=== PATIENT | female | born 1940 | race Caucasian/White ===

== ENCOUNTER → 2018-12-07 | Outpatient (CLI) | payer MEDICARE ==
--- NOTE | 2018-12-07 18:53 | CT ---
EXAMINATION TYPE: CT brain wo con DATE OF EXAM: 12/07/2018 COMPARISON: None HISTORY: Fell and hit head. Headache CT DLP: 1123 mGycm Automated exposure control for dose reduction was used. FINDINGS: Ventricles have normal size. There is no mass effect nor midline shift. There is no sign of intracran ial hemorrhage. The calvarium is intact. There is cerebral cortical atrophy. Skull base appears intac t. IMPRESSION: MILD ATROPHY. NO ACUTE INTRACRANIAL ABNORMALITY.
--- NOTE | 2018-12-07 18:57 | XR ---
EXAMINATION TYPE: XR shoulder complete RT DATE OF EXAM: 12/07/2018 COMPARISON: NONE HISTORY: Fall. Shoulder pain. TECHNIQUE: 3 views FINDINGS: There is a right shoulder prosthesis. The scapula appears intact. There is a tiny irregular shaped 1.5 cm density inferior to the humeral head probably relates to old trauma. Comparison with a n old exam and be helpful. IMPRESSION: Right shoulder prosthesis without sign of loosening. No dislocation. Calcifications seen that could relate to an old injury. A chip fracture of the humeral head cannot be entirely excluded.
== END ==
LOC: RADCTMAIN 18:22
PROVIDERS: ATTEND Nurse Practitioner Family
DX: S09.90XA Unspecified injury of head, initial encounter (principal); G31.9 Degenerative disease of nervous system, unspecified; M25.511 Pain in right shoulder; Z96.611 Presence of right artificial shoulder joint
CPT/HCPCS: 70450

== ENCOUNTER 2021-09-11 08:19 | Emergency (ER) | payer MEDICARE ==
[2021-09-11 08:27] VITALS: RESP 18; TEMP 98.5
[2021-09-11] MEDS ORDERED: AMOXIC-POT CLAV 875MG STARTER PACK 2 TAB BTL PO STA (08:33)
[2021-09-11] MEDS ORDERED: DIPH,PERTUS(ACELL)TETVAC-LF 0.5 ML VIAL IM ONE (08:33)
[2021-09-11] MEDS ORDERED: LIDOCAINE 1% INJ 10MG/ML (20 ML MDV) SQ ONE (08:34)
--- NOTE | 2021-09-11 08:36 | ED ---
General Adult HPI - General Chief complaint: Animal Bite Stated complaint: Dog Bite Time Seen by Provider: 09/11/21 08:28 Source: patient Mode of arrival: wheelchair - History of Present Illness Initial comments: 81-year-old female with a past medical history of fibromyalgia, diverticulitis presents to the emergency room for a chief complaint of dog bite. Patient was bit by her daughter's dog on the right hand and forearm after she tried to get him up off the couch. Patient states that the dog is up-to-date on rabies vaccines. Patient is not up-to-date on tetanus. Patient denies any difficulty moving the hand.Patient has no other complaints at this time including shortness of breath, chest pain, abdominal pain, nausea or vomiting, headache, or visual changes. - Related Data Previous Rx's Medication Instructions Recorded Mupirocin 2% Oint [Bactroban 2% 1 applic TOPICAL TID #20 gm 04/15/15 Oint] Amoxicillin/Potassium Clav 1 tab PO Q12HR #20 tab 09/11/21 [Augmentin 875-125 Tablet] Allergies Allergy/AdvReac Type Severity Reaction Status Date / Time Sulfa (Sulfonamide Allergy Rash/Hives Verified 09/11/21 08:27 Antibiotics) Review of Systems ROS Statement: Those systems with pertinent positive or pertinent negative responses have been documented in the HPI. ROS Other: All systems not noted in ROS Statement are negative. Past Medical History Past Medical History: Fibromyalgia Additional Past Medical History / Comment(s): diverticulitis, arthriitis History of Any Multi-Drug Resistant Organisms: MRSA MDRO Source:: unsure Past Surgical History: Bowel Resection Additional Past Surgical History / Comment(s): ileostomy Past Psychological History: Anxiety Smoking Status: Never smoker Past Alcohol Use History: Occasional Past Drug Use History: None Reported General Exam General appearance: alert, in no apparent distress Head exam: Present: atraumatic Eye exam: Present: normal appearance, PERRL, EOMI. Absent: scleral icterus, conjunctival injection ENT exam: Present: normal exam, mucous membranes moist Neck exam: Present: normal inspection, full ROM. Absent: tenderness Respiratory exam: Present: normal lung sounds bilaterally. Absent: respiratory distress, wheezes Cardiovascular Exam: Present: regular rate, normal rhythm, normal heart sounds GI/Abdominal exam: Present: soft, normal bowel sounds. Absent: distended, tenderness Extremities exam: Present: full ROM (Full range of motion of the right hand and all digits in the right hand.), normal capillary refill (Capillary refill less than 2 seconds right hand. Patient does have a skin tear noted over the dorsal hand measuring about 2 cm. She also has a 2 cm laceration on the right anterior forearm) Course Vital Signs 09/11/21 08:22 Temperature 98.5 F Pulse Rate 79 Respiratory 18 Rate Blood Pressure 156/72 O2 Sat by Pulse 95 Oximetry Procedures - Laceration Laceration #1 Consent Obtained: verbal consent Indication: laceration Site: upper extremity Size (cm): 3 Description: linear Depth: simple, single layer Anesthetic Used: lidocaine 1% Anesthesia Technique: local infiltration Amount (mls): 3 Pre-repair: wound explored, irrigated extensively, deep structures intact Type of Sutures: nylon Size of Sutures: 5-0 Number of Sutures: 3 Technique: simple, interrupted Patient Tolerated Procedure: well, no complications Medical Decision Making - Medical Decision Making Vitals are stable. X-ray of the hand and forearm arm are negative, no foreign body. Wounds were irrigated thoroughly with saline pressure irrigation. There is a 3 cm wound on the anterior forearm that was sutured with 3 simple interrupted sutures. She also had a skin tear noted to the palmar aspect of the fifth metacarpal head, dorsum of the right hand that was repaired with Steri-Strips. Patient started on Augmentin and updated on tetanus. Dog is up to date on rabies immunizations. Discussed return parameters including for infection. Daughter is aware of what to watch for as well. They will follow up with primary care. They will return here in 7-10 days for suture removal. Disposition Clinical Impression: Dog bite Disposition: HOME SELF-CARE Condition: Good Instructions (If sedation given, give patient instructions): Animal Bite (ED) Additional Instructions: Take antibiotic as directed. Keep wounds clean twice a day with gentle soap and water. Apply antibiotic ointment. Follow up with primary care. If he notices any signs of infection such as spreading or streaking redness, drainage, or fever return immediately. Otherwise return in 7-10 days for suture removal. Prescriptions: Amoxicillin/Potassium Clav [Augmentin 875-125 Tablet] 1 tab PO Q12HR #20 tab Is patient prescribed a controlled substance at d/c from ED?: No Referrals: Jase Foreman MD [STAFF PHYSICIAN] - 1-2 days Time of Disposition: 09:42
--- NOTE | 2021-09-11 09:18 | XR ---
EXAMINATION TYPE: XR forearm RT DATE OF EXAM: 09/11/2021 CLINICAL HISTORY: pain TECHNIQUE: Frontal and lateral images of the right forearm are obtained. COMPARISON: None. FINDINGS: There is no acute fracture/dislocation evident. The joint spaces appear within normal limi ts. The overlying soft tissue appears unremarkable. IMPRESSION: There is no acute fracture or dislocation. ICD 10 NO FRACTURE, INITIAL EVALUATION
--- NOTE | 2021-09-11 09:27 | XR ---
EXAMINATION TYPE: XR hand complete RT DATE OF EXAM: 09/11/2021 CLINICAL HISTORY: pain TECHNIQUE: Frontal, lateral and oblique images of the right hand are obtained. COMPARISON: None. FINDINGS: There is no acute fracture/dislocation evident. The joint spaces appear mildly narrowed. T he overlying soft tissue appears unremarkable. IMPRESSION: There is no acute fracture or dislocation ICD 10 NO FRACTURE, INITIAL EVALUATION
[2021-09-11 09:55] VITALS: BP 148/72; PULSE 78
== END 2021-09-11 09:55 | disposition home or self-care (01) ==
LOC: EC 08:19
DX: S61.451A Open bite of right hand, initial encounter (principal); F41.9 Anxiety disorder, unspecified; Z88.2 Allergy status to sulfonamides; W54.0XXA Bitten by dog, initial encounter
CPT/HCPCS: 99283; 90471; 12002; 73090; 73130; 90715; J2001

== ENCOUNTER 2024-01-12 14:45 | Emergency (ER) | payer MEDICARE ==
[2024-01-12 15:12] VITALS: RESP 16
--- NOTE | 2024-01-12 16:09 | ED ---
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 Patient states that she is out of her Lyrica and having breakthrough pain. She states she feels a bit shaky because she has not taken the Lyrica since yesterday. Patient saw her primary today regarding the medication or the pharmacy could not prescription. She denies any new pain, falls or injuries, chest pain or shortness breath. - Related Data Previous Rx's Medication Instructions Recorded Mupirocin 2% Oint [Bactroban 2% 1 applic TOPICAL TID #20 gm 04/15/15 Oint] Amoxicillin/Potassium Clav 1 tab PO Q12HR #20 tab 09/11/21 [Augmentin 875-125 Tablet] Pregabalin [Lyrica] 150 mg PO TID 7 Days #21 cap 01/12/24 Allergies Allergy/AdvReac Type Severity Reaction Status Date / Time Sulfa (Sulfonamide Allergy Rash/Hives Verified 01/12/24 14:52 Antibiotics) Review of Systems ROS Statement: Those systems with pertinent positive or pertinent negative responses have been documented in the HPI. ROS Other: All systems not noted in ROS Statement are negative. Past Medical History Past Medical History: Fibromyalgia Additional Past Medical History / Comment(s): diverticulitis, arthriitis History of Any Multi-Drug Resistant Organisms: MRSA MDRO Source:: unsure Past Surgical History: Bowel Resection Additional Past Surgical History / Comment(s): ileostomy Past Psychological History: Anxiety Smoking Status: Never smoker Past Alcohol Use History: Occasional Past Drug Use History: None Reported General Exam Limitations: no limitations General appearance: alert, in no apparent distress Head exam: Present: atraumatic Eye exam: Present: normal appearance ENT exam: Present: normal exam Neck exam: Present: full ROM Respiratory exam: Present: normal lung sounds bilaterally Cardiovascular Exam: Present: regular rate GI/Abdominal exam: Present: soft Extremities exam: Present: full ROM Back exam: Present: full ROM Neurological exam: Present: alert, oriented X3, CN II-XII intact, normal gait Psychiatric exam: Present: normal affect, normal mood Skin exam: Present: warm, dry Course Vital Signs 01/12/24 01/12/24 14:49 16:53 Temperature 98.2 F 97.6 F Pulse Rate 85 78 Respiratory 16 Rate Blood Pressure 167/77 179/82 O2 Sat by Pulse 99 99 Oximetry - Reevaluation(s) Reevaluation #1: 01/12/24 1615 Patient is well appearing emergency room and in no distress. She is neurologically intact. Able to walk with a steady gait. Daughter at bedside states she is not concerned with the misuse of the medications. The patient as well as the pharmacy who I spoke with states she has not misuse to the medications in the past and has not required early refills in the past. The daughter states she is at her normal baseline and not concerned regarding the misuse. Patient was given dose of Lyrica in the emergency room today. I spoke with the pharmacist who said if she had any prescription they could fill a different dosage that would likely be covered by insurance and the pharmacy would be comfortable filling. Patient will be given a lower dose of 150mg 3 times daily of the Lyrica that she may take until her old prescription is refilled. The patient understood and agreed to this plan. I discussed these issues and prescriptions with attending ED physician Dr. Esparza today Medical Decision Making - Medical Decision Making Was pt. sent in by a medical professional or institution ([facility], PRACTICING MD ANESTHESIOLOGIST, urgent care, hospital, or snf...) When possible be specific @ -[No] Did you speak to anyone other than the patient for history (EMS, parent, family, police, friend...)? What history was obtained from this source @ -Daughter at bedside Did you review nursing and triage notes (agree or disagree)? Why? @ -[I reviewed and agree with nursing and triage notes] Were old charts reviewed (outside hosp., previous admission, EMS record, old EKG, old radiological studies, urgent care reports/EKG's, snf records)? Report findings @ -Yes old charts were reviewed Differential Diagnosis (chest pain, altered mental status, abdominal pain women, abdominal pain men, vaginal bleeding, weakness, fever, dyspnea, syncope, he adache, dizziness, GI bleed, back pain, seizure, CVA, palpatations, mental health, musculoskeletal)? @ -Chronic pain, medication refill EKG interpreted by me (3pts min.). @ -[As above] X-rays interpreted by me (1pt min.). @ -[None done] CT interpreted by me (1pt min.). @ -[None done] U/S interpreted by me (1pt. min.). @ -[None done] What testing was considered but not performed or refused? (CT, X-rays, U/S, labs)? Why? @ -[None] What meds were considered but not given or refused? Why? @ -[None] Did you discuss the management of the patient with other professionals (professionals i.e. , PA, PRACTICING MD ANESTHESIOLOGIST, lab, RT, psych nurse, group social worker, pet care attendant, teacher, first aid officer, rn case manager)? Give summary @ -[I spoke with the pharmacist at [facility] pharmacy regarding patient's refills, medication dosage and refill history. He does not misuse her medications and has not had early refills in the past Was smoking cessation discussed for >3mins.? @ -[No] Was critical care preformed (if so, how long)? @ -[No] Were there social determinants of health that impacted care today? How? (Homelessness, low income, unemployed, alcoholism, drug addiction, transportation, low edu. Level, literacy, decrease access to med. care, custodial, rehab)? @ -[No] Was there de-escalation of care discussed even if they declined (Discuss DNR or withdrawal of care, Hospice)? DNR status @ -[No] What co-morbidities impacted this encounter? (DM, HTN, Smoking, COPD, CAD, Cancer, CVA, ARF, Chemo, Hep., AIDS, mental health diagnosis, sleep apnea, morbid obesity)? @ -[None] Was patient admitted / discharged? Hospital course, mention meds given and route, prescriptions, significant lab abnormalities, going to OR and other pertinent info. @Patient is stable and able to follow up as an outpatient. I spoke with attending ED physician Dr. Esparza regarding medication refills and medication management Undiagnosed new problem with uncertain prognosis? @ -[No] Drug Therapy requiring intensive monitoring for toxicity (Heparin, Nitro, Insulin, Cardizem)? @ -[No] Were any procedures done? @ -[No] Diagnosis/symptom? @ -[Medication refill, chronic pain] Acute, or Chronic, or Acute on Chronic? @ -[Acute on chronic Uncomplicated (without systemic symptoms) or Complicated (systemic symptoms)? @ -[default] Side effects of treatment? @ -[No] Exacerbation, Progression, or Severe Exacerbation? @ -[No] Poses a threat to life or bodily function? How? (Chest pain, [place], MD, pneumonia, PE, COPD, DKA, ARF, appy, cholecystitis, CVA, Diverticulitis, Homicidal, Suicidal, threat to staff... and all critical care pts) @ -[No] Disposition Clinical Impression: Chronic pain, Neuropathy, Medication refill Disposition: HOME SELF-CARE Condition: Good Prescriptions: Pregabalin [Lyrica] 150 mg PO TID 7 Days #21 cap Is patient prescribed a controlled substance at d/c from ED?: Yes When asked, does pt state using other controlled substances?: No If prescribed controlled substance>3 days was MAPS reviewed?: Yes If opioid is for acute pain is fill amount 7 days or less?: No If Rx opioid, was Start Talking consent form obtained?: No Referrals: Jase Waite MD [Primary Care Provider] - 1-2 days Time of Disposition: 16:28
[2024-01-12] MEDS: PREGABALIN 100 MG CAP PO STA (16:19)
[2024-01-12 17:11] VITALS: BP 179/82; PULSE 78; TEMP 97.6
== END 2024-01-12 16:50 | disposition home or self-care (01) ==
LOC: EC 14:45
DX: G89.29 Other chronic pain (principal); G62.9 Polyneuropathy, unspecified; Z76.0 Encounter for issue of repeat prescription; Z88.2 Allergy status to sulfonamides
CPT/HCPCS: 99283

== ENCOUNTER 2024-09-09 17:09 | Emergency (ER) | payer MEDICARE ==
--- NOTE | 2024-09-09 17:17 | ED ---
General Adult HPI - General Chief complaint: Fall Stated complaint: Fall Time Seen by Provider: 09/09/24 17:13 Source: patient, EMS Mode of arrival: EMS Limitations: no limitations - History of Present Illness Initial comments: Patient presents to the ED by ambulance for evaluation status post fall downstairs. Patient states that she was cleaning her stairwell at her residence when she accidentally lost her balance and fell down about 15 stairs. Patient states that she was able to get up on her own and walk outside. She states that her neighbor was outside and came over to her residence and called an ambulance for her. Patient was placed in a c-collar by EMS. Patient is currently complaining of having a mild headache and right shoulder pain. Patient denies any other injury or site of pain. Patient denies LOC/syncope. Patient denies anticoagulant medication use. Patient denies focal numbness/weakness/neuro deficit, visual changes, speech difficulty, neck/back/hip/lower extremity pain, chest pain, dyspnea, palpitations, dizziness, abdominal pain, nausea or vomiting, or any other symptoms or complaints. Patient has sustained multiple skin tears, and she states that she is unsure of her last tetanus shot. - Related Data Home Medications Medication Instructions Recorded Confirmed ALPRAZolam [Xanax] 0.25 mg PO HS 09/09/24 09/09/24 Butalb/APAP/Caff 50-325-40Mg 1 tab PO BID PRN 09/09/24 09/09/24 [Fioricet 50-325-40] Dextroamphetamine/Amphetamine 7.5 mg PO TID 09/09/24 09/09/24 [Adderall] Naproxen Sod/Diphenhydramine 1 tab PO HS 09/09/24 09/09/24 [Aleve Pm Caplet] Naproxen Sodium [Aleve] 220 mg PO BID PRN 09/09/24 09/09/24 Pregabalin [Lyrica] 200 mg PO BID 09/09/24 09/09/24 Venlafaxine HCl [Effexor XR] 150 mg PO DAILY 09/09/24 09/09/24 Vit C/E/Zn/Coppr/Lutein/Zeaxan 1 cap PO BID 09/09/24 09/09/24 [Preservision Areds 2 Softgel] fluorouraciL [Efudex] 1 applic TOPICAL BID 09/09/24 09/09/24 Allergies Allergy/AdvReac Type Severity Reaction Status Date / Time Sulfa (Sulfonamide Allergy Rash/Hives Verified 09/09/24 19:11 Antibiotics) Review of Systems ROS Statement: Those systems with pertinent positive or pertinent negative responses have been documented in the HPI. ROS Other: All systems not noted in ROS Statement are negative. Past Medical History Past Medical History: Fibromyalgia Additional Past Medical History / Comment(s): diverticulitis, arthriitis History of Any Multi-Drug Resistant Organisms: MRSA MDRO Source:: unsure Past Surgical History: Bowel Resection Additional Past Surgical History / Comment(s): ileostomy Past Psychological History: Anxiety Smoking Status: Never smoker Past Alcohol Use History: Occasional Past Drug Use History: None Reported General Exam Limitations: no limitations General appearance: alert Head exam: Present: other (Right posterior scalp swelling and tenderness) Eye exam: Present: normal appearance, PERRL, EOMI ENT exam: Present: mucous membranes moist, TM's normal bilaterally Neck exam: Present: other (C-collar is in place; no cervical tenderness or step- off deformity is noted; trachea is in midline) Respiratory exam: Present: normal lung sounds bilaterally. Absent: respiratory distress, wheezes, rales, rhonchi, stridor, chest wall tenderness Cardiovascular Exam: Present: regular rate, normal rhythm, normal heart sounds, other (Normal radial and dorsalis pedis pulses bilaterally) GI/Abdominal exam: Present: soft. Absent: distended, tenderness, guarding Extremities exam: Present: other (Pelvis is stable and nontender; patient has full range of motion at bilateral hips; skin tears are noted over the patient's right shoulder, right elbow region and right tib-fib region; mild tenderness along right anterior shoulder; patient has full range of motion at right shoulder ) Back exam: Present: normal inspection. Absent: tenderness Neurological exam: Present: alert, oriented X3, CN II-XII intact. Absent: motor sensory deficit Skin exam: Present: warm, dry, normal color Course Vital Signs 09/09/24 09/09/24 17:13 18:30 Temperature 98.9 F Pulse Rate 76 68 Respiratory 18 17 Rate Blood Pressure 142/81 190/97 O2 Sat by Pulse 99 100 Oximetry - Reevaluation(s) Reevaluation #1: 09/09/24 20:04 Patient denies development of any new pain or symptoms while in the ED. Patient remains alert and breathing comfortably. Patient and son are aware the patient's imaging reports, and patient feels comfortable being discharged home with her son at this time. She was counseled about falls, head injuries, skin tears and contusions. She was clearly explained return and follow-up instructions. She was instructed to follow-up closely with her primary care provider. She feels comfortable with this plan. Medical Decision Making - Medical Decision Making Was pt. sent in by a medical professional or institution (, PA, ANIMAL CONTROL OFFICER, urgent care, hospital, or [facility]...) When possible be specific @ -No Did you speak to anyone other than the patient for history (EMS, parent, family, police, friend...)? What history was obtained from this source @ -No Did you review nursing and triage notes (agree or disagree)? Why? @ -I reviewed and agree with nursing and triage notes Were old charts reviewed (outside hosp., previous admission, EMS record, old EKG, old radiological studies, urgent care reports/EKG's, [facility] records)? Report findings @ -No old charts were reviewed Differential Diagnosis (chest pain, altered mental status, abdominal pain women, abdominal pain men, vaginal bleeding, weakness, fever, dyspnea, syncope, headache, dizziness, GI bleed, back pain, seizure, CVA, palpatations, mental health, musculoskeletal)? @ -Fall, contusion, head injury, concussion, hematoma, fracture, sprain, strain, dislocation, abrasion, laceration, skin tear, this is not a complete list. EKG interpreted by me (3pts min.). @ -None done X-rays interpreted by me (1pt min.). @ -Chest, pelvis, right shoulder and right tib/fib x-rays were all reviewed myself and showed no acute fracture or dislocation. I agree with the radiologist's interpretations as above. CT interpreted by me (1pt min.). @ -Noncontrast CT head/cervical spine was reviewed myself and shows no acute intracranial abnormality or fracture. I agree with the radiologist's interpretations as above. U/S interpreted by me (1pt. min.). @ -None done What testing was considered but not performed or refused? (CT, X-rays, U/S, labs)? Why? @ -None What meds were considered but not given or refused? Why? @ -None Did you discuss the management of the patient with other professionals (professionals i.e. , PA, ANIMAL CONTROL OFFICER, lab, RT, psych nurse, director of social services, brand ambassador promotional model, teacher, correctional program officer, manager of case)? Give summary @ -No Was smoking cessation discussed for >3mins.? @ -No Was critical care preformed (if so, how long)? @ -No Were there social determinants of health that impacted care today? How? (Homelessness, low income, unemployed, alcoholism, drug addiction, transportation, low edu. Level, literacy, decrease access to med. care, [facility], rehab)? @ -No Was there de-escalation of care discussed even if they declined (Discuss DNR or withdrawal of care, Hospice)? DNR status @ -No What co-morbidities impacted this encounter? (DM, HTN, Smoking, COPD, CAD, Cancer, CVA, ARF, Chemo, Hep., AIDS, mental health diagnosis, sleep apnea, morbid obesity)? @ -None Was patient admitted / discharged? Hospital course, mention meds given and [place], prescriptions, significant lab abnormalities, going to OR and other pertinent info. @ -Patient reports sustaining a mechanical fall tonight. Patient denies LOC. Patient's imaging studies are all negative. ED RN to clean and dress the patient's multiple skin tears prior to discharge from the ED. Will discharge patient home with her son. Strict return and follow-up instructions were provi ded. Patient feels comfortable with this plan. Undiagnosed new problem with uncertain prognosis? @ -No Drug Therapy requiring intensive monitoring for toxicity (Heparin, Nitro, Insulin, Cardizem)? @ -No Were any procedures done? @ -No Diagnosis/symptom? @ -Mechanical fall with head injury, multiple contusions and multiple skin tears Acute, or Chronic, or Acute on Chronic? @ -Acute Uncomplicated (without systemic symptoms) or Complicated (systemic symptoms)? @ -Default Side effects of treatment? @ -No Exacerbation, Progression, or Severe Exacerbation? @ -No Poses a threat to life or bodily function? How? (Chest pain, [place], [place], pneumonia, PE, COPD, DKA, ARF, appy, cholecystitis, CVA, Diverticulitis, Homicidal, Suicidal, threat to staff... and all critical care pts) @ -No - Radiology Data Noncontrast CT head/cervical spine: 1. No acute intracranial process. 2. Posterior right scalp hematoma. No evidence of fracture. 3. Nonspecific white matter changes throughout the brain. 4. No evidence of cervical spine fracture. 5. Mild multilevel degenerative disc disease. Chest x-ray: No acute cardiopulmonary disease/process. Pelvis x-ray: No acute osseous pathology. Mild degeneration changes of the hip. Right shoulder x-rays: 1. No acute osseous pathology. 2. Right shoulder arthroplasty appears intact. Right tib/fib x-rays: No evidence of acute fracture. Disposition Clinical Impression: Fall, Multiple contusions, Multiple skin tears, Head injury Disposition: HOME SELF-CARE Condition: Stable Instructions (If sedation given, give patient instructions): Fall Prevention for Older Adults (ED), Head Injury (ED), Contusion in Adults (ED), Skin Tear (ED) Additional Instructions: Return to the ER immediately should you develop new or worsening pain or symptoms. Follow-up closely with your primary care provider. Is patient prescribed a controlled substance at d/c from ED?: No Referrals: Jonathan Prado MD [REFERRING] - 1-2 days Time of Disposition: 20:10
[2024-09-09] MEDS: DIPH,PERTUS(ACELL)TETVAC-LF 0.5 ML VIAL IM ONE (17:41)
[2024-09-09 18:32] VITALS: RESP 17
--- NOTE | 2024-09-09 18:52 | CT ---
EXAMINATION TYPE: CT brain cspine wo con CT DLP: 1422.3 mGycm, Automated exposure control for dose reduction was used. DATE OF EXAM: 09/09/2024 6:23 PM COMPARISON: None. CLINICAL INDICATION: Female, 84 years old with history of fall; fell down between 10-15 steps she is unsure of the number. EMS states pt has multiple skin tears and a hematoma on back of her head. Pt de nies any blood thinner or LOC. TECHNIQUE: Brain: Multiple axial CT images of the brain were obtained without IV contrast. Cspine: Axial CT images from the skull base to the inferior aspect of T2 we obtained without intraven ous contrast. Coronal and sagittal reformatted images were also reviewed. . FINDINGS: Brain: Extra-axial spaces: No abnormal extra-axial fluid collections. Ventricular system: Within normal limits Cerebral parenchyma: Mild cerebral atrophy. No acute intraparenchymal hemorrhage or mass effect. The wolfe-white junction is well differentiated. Scattered nonspecific white matter changes throughout th e brain. Cerebellum: Unremarkable. Mass effect: No evidence of midline shift. Intracranial vasculature: Atherosclerosis of the intracranial vasculature. Soft tissues: Right posterior scalp hematoma measuring up to 41 x 18 mm no evidence of fracture. Calvarium/osseous structures: No depressed skull fracture. Paranasal sinuses and mastoid air cells: Clear. Visualized orbits: Bilaterally aphakia Cervical spine: Fracture: None. Osseous structures: Low-level degeneration changes to the spine worse at C5-C7 with at least mild spi nal canal stenosis. Vertebral alignment: Within normal limits. Spinal canal/Neural Foramina: At least mild spinal canal stenosis at C5-C7. Multilevel facet joint ar thropathy with at least mild stenosis throughout the spine. Neck soft tissues: Prevertebral soft tissues are within normal limits. Other: The airway is patent. The lung apices are clear. IMPRESSION: 1. No acute intracranial process. 2. Posterior right scalp hematoma. No evidence of fracture. 3. Nonspecific white matter changes throughout the brain. 4. No evidence of cervical spine fracture. 5. Mild multilevel degenerative disc disease. [facility], , 09/09/2024 6:50 PM
--- NOTE | 2024-09-09 19:27 | XR ---
EXAMINATION TYPE: XR tibia fibula RT DATE OF EXAM: 09/09/2024 7:04 PM CLINICAL INDICATION: Female, 84 years old with history of fall; H COMPARISON: None TECHNIQUE: XR tibia fibula RT; examined in AP and lateral projections. FINDINGS: Total knee arthroplasty appears intact. No evidence of any acute osseous pathology, joint d islocation, or soft tissue swelling is noted. IMPRESSION: No evidence of acute fracture. [facility], , 09/09/2024 7:24 PM
--- NOTE | 2024-09-09 19:38 | XR ---
EXAMINATION TYPE: XR pelvis AP view DATE OF EXAM: 09/09/2024 7:04 PM CLINICAL INDICATION: Female, 84 years old with history of fall; [facility] COMPARISON: None TECHNIQUE: XR pelvis AP view, examined in a single projection. FINDINGS: There is no evidence of fracture or dislocation. There is no soft tissue abnormality. No a bnormal calcifications are present. The spine appears intact. The hips appear intact. Osteophyte form ation of the superior acetabulum bilaterally with mild joint space narrowing. IMPRESSION: No acute osseous pathology. Mild degeneration changes of the hip. [facility], , 09/09/2024 7:36 PM
--- NOTE | 2024-09-09 19:38 | XR ---
EXAMINATION TYPE: XR chest 1V portable DATE OF EXAM: 09/09/2024 7:04 PM CLINICAL INDICATION: Female, 84 years old with history of fall; [facility] COMPARISON: None TECHNIQUE: XR chest 1V portable Frontal view of the chest. FINDINGS: Lungs/Pleura: There is no evidence of pleural effusion, focal consolidation, or pneumothorax. Pulmonary vascularity: Unremarkable. Heart/mediastinum: Cardiomediastinal silhouette is unremarkable. Musculoskeletal: No acute osseous pathology. Right shoulder arthroplasty appears intact. IMPRESSION: No acute cardiopulmonary disease/process. [facility], , 09/09/2024 7:36 PM
--- NOTE | 2024-09-09 19:39 | XR ---
EXAMINATION TYPE: XR shoulder complete RT DATE OF EXAM: 09/09/2024 7:04 PM CLINICAL INDICATION: Female, 84 years old with history of fall; [facility] COMPARISON: 12/07/2018 TECHNIQUE: XR shoulder complete RT; examined in AP, internally rotated and scapular Y projections. FINDINGS: No evidence of acute osseous pathology, joint dislocation, or soft tissue swelling. The remaining po rtions of the visualized chest are unremarkable. Right shoulder arthroplasty is present. No evidence of fracture. Remote fracture with revision change s. IMPRESSION: 1. No acute osseous pathology. 2. Right shoulder arthroplasty appears intact. [facility], , 09/09/2024 7:37 PM
[2024-09-09 21:04] VITALS: BP 148/77; PULSE 83; TEMP 97.8
== END 2024-09-09 20:45 | disposition home or self-care (01) ==
LOC: EC 17:09 → SUPCPDRO 17:09 → EC 20:45
CPT/HCPCS: 70450; 71045; 72125; 72170; 90471; 90715; 99284

== ENCOUNTER 2024-10-29 14:51 | Emergency (ER) | payer MEDICARE ==
--- NOTE | 2024-10-29 15:19 | ED ---
Recheck HPI - General Chief Complaint: Recheck/Abnormal Lab/Rx Stated Complaint: ran out of lyrica Time Seen by Provider: 10/29/24 15:18 Source: patient, family, RN notes reviewed Mode of arrival: ambulatory Limitations: no limitations - History of Present Illness Initial Comments: 84-year-old female presented to the ER for medication refill. 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 She reports has been out of this medication since Wednesday. She is scheduled to follow-up with PCP for refill tomorrow. Patient denies any headache, cough, congestion, fevers, chills, chest pain, shortness of breath, abdominal pain, constipation/diarrhea, urinary complaints or peripheral edema. - Related Data Home Medications Medication Instructions Recorded Confirmed ALPRAZolam [Xanax] 0.25 mg PO HS 09/09/24 09/09/24 Butalb/APAP/Caff 50-325-40Mg 1 tab PO BID PRN 09/09/24 09/09/24 [Fioricet 50-325-40] Dextroamphetamine/Amphetamine 7.5 mg PO TID 09/09/24 09/09/24 [Adderall] Naproxen Sod/Diphenhydramine 1 tab PO HS 09/09/24 09/09/24 [Aleve Pm Caplet] Naproxen Sodium [Aleve] 220 mg PO BID PRN 09/09/24 09/09/24 Pregabalin [Lyrica] 200 mg PO BID 09/09/24 09/09/24 Venlafaxine HCl [Effexor XR] 150 mg PO DAILY 09/09/24 09/09/24 Vit C/E/Zn/Coppr/Lutein/Zeaxan 1 cap PO BID 09/09/24 09/09/24 [Preservision Areds 2 Softgel] fluorouraciL [Efudex] 1 applic TOPICAL BID 09/09/24 09/09/24 Previous Rx's Medication Instructions Recorded Pregabalin [Lyrica] 200 mg PO TID 2 Days #6 cap 10/29/24 Allergies Allergy/AdvReac Type Severity Reaction Status Date / Time Sulfa (Sulfonamide Allergy Rash/Hives Verified 10/29/24 14:56 Antibiotics) Review of Systems ROS Statement: Those systems with pertinent positive or pertinent negative responses have been documented in the HPI. ROS Other: All systems not noted in ROS Statement are negative. Past Medical History Past Medical History: Fibromyalgia Additional Past Medical History / Comment(s): diverticulitis, arthriitis History of Any Multi-Drug Resistant Organisms: MRSA MDRO Source:: unsure Past Surgical History: Bowel Resection Additional Past Surgical History / Comment(s): ileostomy Past Psychological History: Anxiety Smoking Status: Never smoker Past Alcohol Use History: Occasional Past Drug Use History: None Reported General Exam Limitations: no limitations General appearance: alert, in no apparent distress Respiratory exam: Present: normal lung sounds bilaterally. Absent: respiratory distress, wheezes, rales, rhonchi, stridor Cardiovascular Exam: Present: regular rate, normal rhythm, normal heart sounds. Absent: systolic murmur, diastolic murmur, rubs, gallop, clicks Neurological exam: Present: alert, oriented X3, CN II-XII intact Skin exam: Present: warm, dry, intact, normal color. Absent: rash Course Vital Signs 10/29/24 10/29/24 14:53 15:33 Temperature 98.3 F 98.0 F Pulse Rate 73 70 Respiratory 16 18 Rate Blood Pressure 145/72 139/68 O2 Sat by Pulse 98 97 Oximetry Medical Decision Making - Medical Decision Making Was pt. sent in by a medical professional or institution ([facility], MANAGER LOAN, urgent care, hospital, or fdc...) When possible be specific @ -No Did you speak to anyone other than the patient for history (EMS, parent, family, police, friend...)? What history was obtained from this source @ -No Did you review nursing and triage notes (agree or disagree)? Why? @ -I reviewed and agree with nursing and triage notes Were old charts reviewed (outside hosp., previous admission, EMS record, old EKG, old radiological studies, urgent care reports/EKG's, fdc records)? Report findings @ -No old charts were reviewed Differential Diagnosis (chest pain, altered mental status, abdominal pain women, abdominal pain men, vaginal bleeding, weakness, fever, dyspnea, syncope, headache, dizziness, GI bleed, back pain, seizure, CVA, palpatations, mental health, musculoskeletal)? @ -Medication refill, intractable pain, fall... This list is not meant to be all-inclusive EKG interpreted by me (3pts min.). @ -None done X-rays interpreted by me (1pt min.). @ -None done CT interpreted by me (1pt min.). @ -None done U/S interpreted by me (1pt. min.). @ -None done What testing was considered but not performed or refused? (CT, X-rays, U/S, labs)? Why? @ -None What meds were considered but not given or refused? Why? @ -None Did you discuss the management of the patient with other professionals (professionals i.e. DrElvin, PA, MANAGER LOAN, lab, RT, psych nurse, social human services assistants, cosmetic maker, teacher, senior major gifts officer, lining caser)? Give summary @ -No Was smoking cessation discussed for >3mins.? @ -No Was critical care preformed (if so, how long)? @ -No Were there social determinants of health that impacted care today? How? (Homelessness, low income, unemployed, alcoholism, drug addiction, transportation, low edu. Level, literacy, decrease access to med. care, [facility], rehab)? @ -No Was there de-escalation of care discussed even if they declined (Discuss DNR or withdrawal of care, Hospice)? DNR status @ -No What co-morbidities impacted this encounter? (DM, HTN, Smoking, COPD, CAD, Cancer, CVA, ARF, Chemo, Hep., AIDS, mental health diagnosis, sleep apnea, mo rbid obesity)? @ -None Was patient admitted / discharged? Hospital course, mention meds given and route, prescriptions, significant lab abnormalities, going to OR and other pertinent info. @ -Discharge. 84-year-old female presenting to the ER for medication refill. History and physical exam completed. Vitals stable. Patient no signs of acute distress. 2 day supply of Lyrica prescribed. Patient reports follow-up with PCP tomorrow. Strict return parameters discussed. Patient discharged in stable condition with follow-up to PCP. Patient verbally expressed understanding and agreement with care plan. Case discussed with ED attending, Dr. Esparza. Undiagnosed new problem with uncertain prognosis? @ -No Drug Therapy requiring intensive monitoring for toxicity (Heparin, Nitro, Insuli n, Cardizem)? @ -No Were any procedures done? @ -No Diagnosis/symptom? @ -Medication refill Acute, or Chronic, or Acute on Chronic? @ -Acute Uncomplicated (without systemic symptoms) or Complicated (systemic symptoms)? @ -Uncomplicated Side effects of treatment? @ -No Exacerbation, Progression, or Severe Exacerbation? @ -No Poses a threat to life or bodily function? How? (Chest pain, [place], [place], pneumonia, PE, COPD, DKA, ARF, appy, cholecystitis, CVA, Diverticulitis, Homicidal, Suicidal, threat to staff... and all critical care pts) @ -No Disposition Clinical Impression: Encounter for medication refill Disposition: HOME SELF-CARE Condition: Stable Additional Instructions: Follow-up with PCP. Return to the ER for any new or worsening symptoms. Take medications as prescribed. Prescriptions: Pregabalin [Lyrica] 200 mg PO TID 2 Days #6 cap Is patient prescribed a controlled substance at d/c from ED?: Yes When asked, does pt state using other controlled substances?: No If prescribed controlled substance>3 days was MAPS reviewed?: Prescribed <3 Days If opioid is for acute pain is fill amount 7 days or less?: Yes If Rx opioid, was Start Talking consent form obtained?: Yes Referrals: Jase Waite MD [Primary Care Provider] - 1-2 days Time of Disposition: 15:19
[2024-10-29 15:48] VITALS: BP 139/68; PULSE 70; RESP 18; TEMP 98
== END 2024-10-29 15:34 | disposition home or self-care (01) ==
LOC: EC 14:51
DX: Z76.0 Encounter for issue of repeat prescription (principal); Z88.2 Allergy status to sulfonamides
CPT/HCPCS: 99281; 99282

== ENCOUNTER 2024-10-29 16:39 | Emergency (ER) | payer MEDICARE ==
[2024-10-29 16:51] VITALS: PULSE 68
--- NOTE | 2024-10-29 17:06 | ED ---
General Adult HPI - General Chief complaint: Recheck/Abnormal Lab/Rx Stated complaint: Sleep deprivation Time Seen by Provider: 10/29/24 16:54 Source: patient Mode of arrival: ambulatory Limitations: no limitations - History of Present Illness Initial comments: 84-year-old female requesting something to help her sleep. Patient was seen here earlier today, she was out of her Lyrica was trying to get a refill. She has an appointment with her doctor tomorrow to discuss her dosing and possible refill. Prescription for 3-day supply was sent to her pharmacy. Pharmacy would not fill the prescription because it was not yet time for a refill. Patient states that she needs something to help her sleep tonight, she is very restless without her Lyrica which she has been on for many years - Related Data Home Medications Medication Instructions Recorded Confirmed ALPRAZolam [Xanax] 0.25 mg PO HS 09/09/24 09/09/24 Butalb/APAP/Caff 50-325-40Mg 1 tab PO BID PRN 09/09/24 09/09/24 [Fioricet 50-325-40] Dextroamphetamine/Amphetamine 7.5 mg PO TID 09/09/24 09/09/24 [Adderall] Naproxen Sod/Diphenhydramine 1 tab PO HS 09/09/24 09/09/24 [Aleve Pm Caplet] Naproxen Sodium [Aleve] 220 mg PO BID PRN 09/09/24 09/09/24 Pregabalin [Lyrica] 200 mg PO BID 09/09/24 09/09/24 Venlafaxine HCl [Effexor XR] 150 mg PO DAILY 09/09/24 09/09/24 Vit C/E/Zn/Coppr/Lutein/Zeaxan 1 cap PO BID 09/09/24 09/09/24 [Preservision Areds 2 Softgel] fluorouraciL [Efudex] 1 applic TOPICAL BID 09/09/24 09/09/24 Previous Rx's Medication Instructions Recorded Pregabalin [Lyrica] 200 mg PO TID 2 Days #6 cap 10/29/24 Allergies Allergy/AdvReac Type Severity Reaction Status Date / Time Sulfa (Sulfonamide Allergy Rash/Hives Verified 10/29/24 16:51 Antibiotics) Review of Systems ROS Statement: Those systems with pertinent positive or pertinent negative responses have been documented in the HPI. ROS Other: All systems not noted in ROS Statement are negative. Past Medical History Past Medical History: Fibromyalgia Additional Past Medical History / Comment(s): diverticulitis, arthriitis History of Any Multi-Drug Resistant Organisms: MRSA MDRO Source:: unsure Past Surgical History: Bowel Resection Additional Past Surgical History / Comment(s): ileostomy Past Psychological History: Anxiety Smoking Status: Never smoker Past Alcohol Use History: Occasional Past Drug Use History: None Reported General Exam Limitations: no limitations General appearance: alert, in no apparent distress Head exam: Present: atraumatic, normocephalic, normal inspection Eye exam: Present: normal appearance, EOMI Neck exam: Present: normal inspection. Absent: meningismus Respiratory exam: Absent: respiratory distress Cardiovascular Exam: Present: regular rate Neurological exam: Present: alert, oriented X3 Psychiatric exam: Present: normal affect, normal mood Skin exam: Present: normal color Course Vital Signs 10/29/24 10/29/24 16:49 17:32 Temperature 98.3 F 98.0 F Pulse Rate 68 68 Respiratory 16 18 Rate Blood Pressure 158/96 156/92 O2 Sat by Pulse 100 97 Oximetry Medical Decision Making - Medical Decision Making Was pt. sent in by a medical professional or institution (, PA, DIESEL DINKEY ENGINEER, urgent care, hospital, or long-term...) When possible be specific @ -No Did you speak to anyone other than the patient for history (EMS, parent, family, police, friend...)? What history was obtained from this source @ -No Did you review nursing and triage notes (agree or disagree)? Why? @ -I reviewed and agree with nursing and triage notes Were old charts reviewed (outside hosp., previous admission, EMS record, old EKG, old radiological studies, urgent care reports/EKG's, long-term records)? Report findings @ -No old charts were reviewed Differential Diagnosis (chest pain, altered mental status, abdominal pain women, abdominal pain men, vaginal bleeding, weakness, fever, dyspnea, syncope, headache, dizziness, GI bleed, back pain, seizure, CVA, palpatations, mental health, musculoskeletal)? @ -Not applicable EKG interpreted by me (3pts min.). @ -As above X-rays interpreted by me (1pt min.). @ -None done CT interpreted by me (1pt min.). @ -None done U/S interpreted by me (1pt. min.). @ -None done What testing was considered but not performed or refused? (CT, X-rays, U/S, labs)? Why? @ -None What meds were considered but not given or refused? Why? @ -None Did you discuss the management of the patient with other professionals (professionals i.e. DrElvin, PA, DIESEL DINKEY ENGINEER, lab, RT, psych nurse, health social work professor, housing assistant, teacher, navigating officer, shoe parts caser)? Give summary @ -No Was smoking cessation discussed for >3mins.? @ -No Was critical care preformed (if so, how long)? @ -No Were there social determinants of health that impacted care today? How? (Homelessness, low income, unemployed, alcoholism, drug addiction, transportation, low edu. Level, literacy, decrease access to med. care, half-way, rehab)? @ -No Was there de-escalation of care discussed even if they declined (Discuss DNR or withdrawal of care, Hospice)? DNR status @ -No What co-morbidities impacted this encounter? (DM, HTN, Smoking, COPD, CAD, Cancer, CVA, ARF, Chemo, Hep., AIDS, mental health diagnosis, sleep apnea, morbid obesity)? @ -None Was patient admitted / discharged? Hospital course, mention meds given and route, prescriptions, significant lab abnormalities, going to OR and other pertinent info. @ -84-year-old female who is requesting a dose of her Lyrica. She was sent a 3-day supply today after an ER visit to our facility, they will not fill it because it is too soon since her last refill. She is feeling restless without her Lyrica. She is given a single dose of her Lyrica here in the ER. She has an appointment with her PCP tomorrow to discuss her dosage. She has a safe ride home. Discharged. Follow-up with PCP. Report back to ER with any new or worsening symptoms. Discussed return parameters and answered all questions. Patient conveyed verbal understanding and agreed to the plan. I discussed this case in detail with my attending Dr. Mera Undiagnosed new problem with uncertain prognosis? @ -No Drug Therapy requiring intensive monitoring for toxicity (Heparin, Nitro, Insulin, Cardizem)? @ -No Were any procedures done? @ -No Diagnosis/symptom? @ -Patient is out of medication Acute, or Chronic, or Acute on Chronic? @ -Acute Uncomplicated (without systemic symptoms) or Complicated (systemic symptoms)? @ -Uncomplicated Side effects of treatment? @ -No Exacerbation, Progression, or Severe Exacerbation? @ -No Poses a threat to life or bodily function? How? (Chest pain, [place], [place], pneumonia, PE, COPD, DKA, ARF, appy, cholecystitis, CVA, Diverticulitis, Homicidal, Suicidal, threat to staff... and all critical care pts) @ -No Disposition Clinical Impression: Has run out of medications Disposition: HOME SELF-CARE Condition: Good Additional Instructions: Follow-up with your PCP at your scheduled appointment tomorrow. Report back to ER with any new or worsening symptoms. Is patient prescribed a controlled substance at d/c from ED?: No Referrals: Jase Waite MD [Primary Care Provider] - 1-2 days Time of Disposition: 17:06
[2024-10-29] MEDS: PREGABALIN 100 MG CAP PO STA (17:28)
[2024-10-29 17:34] VITALS: BP 156/92; RESP 18; TEMP 98
== END 2024-10-29 17:33 | disposition home or self-care (01) ==
LOC: EC 16:39
DX: Z91.148 Patient's other noncompliance with medication regimen for other reason (principal); Z88.2 Allergy status to sulfonamides
CPT/HCPCS: 99281

== ENCOUNTER → 2024-12-05 | Outpatient (CLI) | payer MEDICARE ==
--- NOTE | 2024-12-05 13:55 | US ---
EXAMINATION TYPE: US kidneys/renal and bladder DATE OF EXAM: 12/05/2024 COMPARISON: NONE CLINICAL INDICATION: Female, 84 years old with history of M54.50 LOW BACK PAIN; back pain TECHNIQUE: Grayscale imaging of the bilateral kidneys and urinary bladder: FINDINGS: EXAM MEASUREMENTS: Right Kidney: 8.7 x 3.2 x 4.3 cm Left Kidney: 9.9 x 4.7 x 3.6 cm Right Kidney: No hydronephrosis or masses seen Left Kidney: No hydronephrosis or masses seen Bladder: anechoic Bilateral Jets seen: yes There is no evidence for hydronephrosis at this point in time. No nephrolithiasis is seen. No martín s are identified. The urinary bladder is anechoic. IMPRESSION: No evidence for obstructive uropathy or renal calculus. [facility], , 12/05/2024 1:52 PM
== END | disposition home or self-care (01) ==
LOC: RADUSWWP 13:22
PROVIDERS: ATTEND Family Medicine
DX: M54.50 Low back pain, unspecified (principal)
CPT/HCPCS: 76770

== ENCOUNTER 2024-12-22 12:16 | Emergency (ER) | payer MEDICARE ==
[2024-12-22 12:39] VITALS: BP 153/90; PULSE 87; RESP 18; TEMP 98.4
--- NOTE | 2024-12-22 12:54 | ED ---
Recheck HPI - General Chief Complaint: Recheck/Abnormal Lab/Rx Stated Complaint: Medication refill Time Seen by Provider: 12/22/24 12:43 Source: patient, RN notes reviewed Mode of arrival: ambulatory Limitations: no limitations - History of Present Illness Initial Comments: This is an 84-year-old female with chronic pain presenting to the emergency department for medication refill. Patient states that she is in need of a refill of her Lyrica and is not due for refill until 01 January. Patient has not attempted to contact her primary care provider who prescribed this medication for her. No other acute complaints at this time. - Related Data Home Medications Medication Instructions Recorded Confirmed ALPRAZolam [Xanax] 0.25 mg PO HS 09/09/24 09/09/24 Butalb/APAP/Caff 50-325-40Mg 1 tab PO BID PRN 09/09/24 09/09/24 [Fioricet 50-325-40] Dextroamphetamine/Amphetamine 7.5 mg PO TID 09/09/24 09/09/24 [Adderall] Naproxen Sod/Diphenhydramine 1 tab PO HS 09/09/24 09/09/24 [Aleve Pm Caplet] Naproxen Sodium [Aleve] 220 mg PO BID PRN 09/09/24 09/09/24 Pregabalin [Lyrica] 200 mg PO BID 09/09/24 09/09/24 Venlafaxine HCl [Effexor XR] 150 mg PO DAILY 09/09/24 09/09/24 Vit C/E/Zn/Coppr/Lutein/Zeaxan 1 cap PO BID 09/09/24 09/09/24 [Preservision Areds 2 Softgel] fluorouraciL [Efudex] 1 applic TOPICAL BID 09/09/24 09/09/24 Previous Rx's Medication Instructions Recorded Pregabalin [Lyrica] 200 mg PO TID 2 Days #6 cap 10/29/24 Allergies Allergy/AdvReac Type Severity Reaction Status Date / Time Sulfa (Sulfonamide Allergy Rash/Hives Verified 12/22/24 12:35 Antibiotics) Review of Systems ROS Statement: Those systems with pertinent positive or pertinent negative responses have been documented in the HPI. ROS Other: All systems not noted in ROS Statement are negative. 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 Absent: tenderness, meningismus, lymphadenopathy Respiratory exam: Present: normal lung sounds bilaterally. Absent: respiratory distress, wheezes, rales, rhonchi, stridor Cardiovascular Exam: Present: regular rate, normal rhythm, normal heart sounds. Absent: systolic murmur, diastolic murmur, rubs, gallop, clicks GI/Abdominal exam: Present: soft, normal bowel sounds. Absent: distended, tenderness, guarding, rebound, rigid Extremities exam: Present: normal inspection, full ROM, normal capillary refill. Absent: tenderness, pedal edema, joint swelling, calf tenderness Course Vital Signs 12/22/24 12:35 Temperature 98.4 F Pulse Rate 87 Respiratory 18 Rate Blood Pressure 153/90 O2 Sat by Pulse 99 Oximetry Medical Decision Making - Medical Decision Making Was pt. sent in by a medical professional or institution (, PA, WATER ATTENDANT, urgent care, hospital, or [facility]...) When possible be specific @ -No Did you speak to anyone other than the patient for history (EMS, parent, family, police, friend...)? What history was obtained from this source @ -No Did you review nursing and triage notes (agree or disagree)? Why? @ -I reviewed and agree with nursing and triage notes Were old charts reviewed (outside hosp., previous admission, EMS record, old EKG, old radiological studies, urgent care reports/EKG's, [facility] records)? Report findings @ -No old charts were reviewed Differential Diagnosis (chest pain, altered mental status, abdominal pain women, abdominal pain men, vaginal bleeding, weakness, fever, dyspnea, syncope, headache, dizziness, GI bleed, back pain, seizure, CVA, palpatations, mental health, musculoskeletal)? @ -Encounter for medication refill EKG interpreted by me (3pts min.). @ -None X-rays interpreted by me (1pt min.). @ -None done CT interpreted by me (1pt min.). @ -None done U/S interpreted by me (1pt. min.). @ -None done What testing was considered but not performed or refused? (CT, X-rays, U/S, labs)? Why? @ -None What meds were considered but not given or refused? Why? @ -None Did you discuss the management of the patient with other professionals (professionals i.e. Dr., PA, WATER ATTENDANT, lab, RT, psych nurse, social services analyst, boiler operator, teacher, chief green officer, egg caser)? Give summary @ -No Was smoking cessation discussed for >3mins.? @ -No Was critical care preformed (if so, how long)? @ -No Were there social determinants of health that impacted care today? How? (Homelessness, low income, unemployed, alcoholism, drug addiction, transportation, low edu. Level, literacy, decrease access to med. care, custodial, rehab)? @ -No Was there de-escalation of care discussed even if they declined (Discuss DNR or withdrawal of care, Hospice)? DNR status @ -No What co-morbidities impacted this encounter? (DM, HTN, Smoking, COPD, CAD, Cancer, CVA, ARF, Chemo, Hep., AIDS, mental health diagnosis, sleep apnea, morbid obesity)? @ -None Was patient admitted / discharged? Hospital course, mention meds given and route, prescriptions, significant lab abnormalities, going to OR and other pertinent info. @ -Discharge. 84-year-old female presenting with encounter for medication refill. Maps has been reviewed which reveals that patient had a prescription for Lyrica that was filled on 11/27/2024. Patient has an outpatient prescription that has been provided by her primary care provider and discussed with patient unable to fill controlled substance and that she follow-up with primary care provider. Case discussed with Dr. Magaña Undiagnosed new problem with uncertain prognosis? @ -No Drug Therapy requiring intensive monitoring for toxicity (Heparin, Nitro, Ins ulin, Cardizem)? @ -No Were any procedures done? @ -No Diagnosis/symptom? @ -encounter for medication refill Acute, or Chronic, or Acute on Chronic? @ -acute Uncomplicated (without systemic symptoms) or Complicated (systemic symptoms)? @ -uncomplicated Side effects of treatment? @ -No Exacerbation, Progression, or Severe Exacerbation? @ -No Poses a threat to life or bodily function? How? (Chest pain, [place], [place], pneumonia, PE, COPD, DKA, ARF, appy, cholecystitis, CVA, Diverticulitis, Homicidal, Suicidal, threat to staff... and all critical care pts) @ -No Disposition Clinical Impression: Encounter for medication refill Disposition: HOME SELF-CARE Condition: Good Instructions (If sedation given, give patient instructions): Pregabalin (By mouth) Additional Instructions: Please return to the Emergency Department if symptoms worsen or any other conc erns. Is patient prescribed a controlled substance at d/c from ED?: No Referrals: Jonathan Prado MD [Primary Care Provider] - 1-2 days Time of Disposition: 12:53
== END 2024-12-22 13:05 | disposition home or self-care (01) ==
LOC: EC 12:16
DX: Z76.0 Encounter for issue of repeat prescription (principal); Z88.2 Allergy status to sulfonamides
CPT/HCPCS: 99281